=== PATIENT | male | born 1970 | race Caucasian/White ===

== ENCOUNTER 2019-04-25 13:04 | Emergency (ER) | payer OTHER ==
[2019-04-25 13:38] LABS: BASOPHILS % (AUTO) 0.2 %; HGB - HEMOGLOBIN 15.7 g/dL (14.0-18.0); LYMPHOCYTES # (AUTO) 1.8 10^3/uL (1.5-3.5); LYMPHOCYTES % (AUTO) 17.9 %; MEAN CORPUSCULAR HEMOGLOBIN 30.7 pg (27.0-31.0); MEAN CORPUSCULAR HGB CONC 35.2 g/dL (32.0-36.0); MEAN CORPUSCULAR VOLUME 87.1 fL (80.0-94.0); MEAN PLATELET VOLUME 9.7 fL (7.4-11.4); MONOCYTES # (AUTO) 0.9 10^3/uL (0.0-1.0); MONOCYTES % (AUTO) 8.8 %; NEUTROPHILS # (AUTO) 7.1 10^3/uL (1.5-6.6); NEUTROPHILS % (AUTO) 72.5 %; PLT - PLATELET COUNT 242 10^3/uL (130-450); RED BLOOD COUNT 5.12 10^6/uL (4.70-6.10); RED CELL DISTRIBUTION WIDTH 12.4 % (12.0-15.0); WHITE BLOOD COUNT 9.8 x10^3/uL (4.8-10.8)
--- NOTE | 2019-04-25 13:48 | ED Physician Documentation ---
PD HPI ABD PAIN - Stated complaint Stated Complaint: ABD PX - Chief complaint Chief Complaint: Abd Pain - History obtained from History obtained from: Patient - History of Present Illness Timing - onset: Other (48-year-old gentleman with intermittent upper abdominal pain that is nonradiating for about 2 months. It is worse after eating, does not seem to matter what he eats. There is no associated nausea, vomiting, changes in bowel movements. He denies weight loss or fevers. He was a heavy drinker up until about a week ago and then quit. He denies NSAID use.) Review of Systems Ten Systems: 10 systems reviewed and negative Constitutional: denies: Fever, Chills Throat: denies: Dental pain / toothache Cardiac: denies: Chest pain / pressure, Palpitations Respiratory: denies: Dyspnea, Cough PD PAST MEDICAL HISTORY - Present Medications Home Medications: Ambulatory Orders Medication Instructions Recorded Confirmed Omeprazole 20 mg PO DAILY #30 capsule. 04/25/19 - Allergies Allergies/Adverse Reactions: Allergies Allergy/AdvReac Type Severity Reaction Status Date / Time No Known Drug Allergies Allergy Verified 04/25/19 13:21 PD ED PE NORMAL - Vitals Vital signs reviewed: Yes - General General: Alert and oriented X 3, No acute distress, Other (He is quite anxious and shares that he is quite worried about cancer as he has a strong family history of same.) - Cardiac Cardiac: RRR, No murmur - Respiratory Respiratory: No respiratory distress, Clear bilaterally - Abdomen Abdomen: Normal bowel sounds, Soft, Non tender - Back Back: No CVA TTP, No spinal TTP - Derm Derm: Normal color, Warm and dry - Extremities Extremities: No edema, No calf tenderness / cord - Neuro Neuro: Alert and oriented X 3, Normal speech Results - Vitals Vitals: Vital Signs - 24 hr 04/25/19 04/25/19 13:18 14:24 Temperature 37.2 C Heart Rate 104 H 86 Respiratory 18 17 Rate Blood Pressure 142/108 H 136/86 H O2 Saturation 98 96 Oxygen O2 Source Room air - Labs Labs: Laboratory Tests 04/25/19 04/25/19 04/25/19 13:33 13:33 13:48 WBC 9.8 RBC 5.12 Hgb 15.7 Hct 44.6 MCV 87.1 MCH 30.7 MCHC 35.2 RDW 12.4 Plt Count 242 MPV 9.7 Neut # (Auto) 7.1 H Lymph # (Auto) 1.8 [place] # (Auto) 0.9 Eos # (Auto) 0.0 Baso # (Auto) 0.0 Absolute Nucleated RBC 0.00 Nucleated RBC % 0.0 Sodium 136 Potassium 3.9 Chloride 100 L Carbon Dioxide 23 Anion Gap 13.0 BUN 19 Creatinine 1.2 Estimated GFR (MDRD) 65 L Glucose 115 H Calcium 9.3 Total Bilirubin 0.8 AST 24 ALT 35 Alkaline Phosphatase 76 Total Protein 7.8 Albumin 4.9 Globulin 2.9 Albumin/Globulin Ratio 1.7 Lipase 26 Urine Color YELLOW Urine Clarity CLEAR Urine pH 6.0 Ur Specific [place] <=1.005 Urine Protein NEGATIVE Urine Glucose (UA) NEGATIVE Urine Ketones NEGATIVE Urine Occult Blood NEGATIVE Urine Nitrite NEGATIVE Urine Bilirubin NEGATIVE Urine Urobilinogen 0.2 (NORMAL) Ur Leukocyte Esterase NEGATIVE Ur Microscopic Review NOT INDICATED Urine Culture Comments NOT INDICATED - Rads (name of study) CT A/P Radiology: EMP read contemporaneously (?bone intraluminal LLQ, does not fit presentation) PD MEDICAL DECISION MAKING - ED course ED course: 48-year-old gentleman presents with ongoing episodic epigastric pain for 2 months and a pattern most consistent with gastritis. He was very anxious about the possibility of cancer given the family history of that and as such a CT scan was done to evaluate for serious pathology and was negative except for a possible fishbone or chicken bone in the left lower quadrant which would not fit the pattern of his symptoms and should pass without issue. Return for new or severe pain was advised as well as follow-up for endoscopy. Departure - Departure Disposition: 01 Home, Self Care Clinical Impression: Abdominal pain, Gastritis Condition: Good Record reviewed to determine appropriate education?: Yes Health Concerns: abd pain, pt concerned about cancer, but no evidence of that Plan of Treatment: PPI, followup for endoscopies Care Goals: resolution Assessment: as above Instructions: ED Gastritis Follow-Up: Kilo Villarreal MD [Provider Admit Priv/Credential] - Within 1 week Prescriptions: Omeprazole 20 mg PO DAILY #30 capsule. Comments: The pattern of your pain is most consistent with gastritis. The new medication should help but not immediately, he have to take it for 2 to 3 days before you get relief. Return for new worsening symptoms. As discussed it looks like you ate a small chicken bone or something along those lines that is within the bowel, it should not hurt you but if you develop new or different pain please return immediately for reevaluation. Follow-up with the surgeon for evaluation for upper and lower endoscopies.
[2019-04-25 13:51] LABS: ALBUMIN 4.9 g/dL (3.2-5.5); ALBUMIN/GLOBULIN RATIO 1.7 (1.0-2.2); BILIRUBIN,TOTAL 0.8 mg/dL (0.2-1.0); CALCIUM 9.3 mg/dL (8.5-10.3); CREATININE 1.2 mg/dL (0.6-1.2); TOTAL PROTEIN 7.8 g/dL (6.7-8.2)
[2019-04-25] MEDS ORDERED: IOVERSOL 320 100 ML VIAL IVP ONE ×2 (14:03→15:41)
[2019-04-25 14:04] LABS: BILIRUBIN,URINE NEGATIVE (NEGATIVE); GLUCOSE, URINE (UA) NEGATIVE (NEGATIVE); KETONES,URINE (UA) NEGATIVE (NEGATIVE); LEUKOCYTE ESTERASE, URINE NEGATIVE (NEGATIVE); NITRITE,URINE NEGATIVE (NEGATIVE); OCCULT BLOOD,URINE NEGATIVE (NEGATIVE); PROTEIN,URINE NEGATIVE (NEGATIVE); UROBILINOGEN,URINE 0.2 (NORMAL) E.U./dL (NORMAL)
[2019-04-25 14:07] LABS: CLARITY,URINE CLEAR (CLEAR)
--- NOTE | 2019-04-25 15:54 | CT Report ---
Reason: IV only, upper abd pain Procedure Date: 04/25/2019 Accession Number: [id number] / [id number] Procedure: CT - Abdomen/Pelvis W CPT Code: FULL RESULT: EXAM: CT ABDOMEN AND PELVIS EXAM DATE: 04/25/2019 02:54 PM. CLINICAL HISTORY: IV only, upper abdominal pain. COMPARISONS: None. TECHNIQUE: Routine helical CT imaging was performed through the abdomen and pelvis. IV contrast: OPTI 320 100ML. Enteric contrast: No. Reconstructions: Coronal and sagittal. In accordance with CT protocol optimization, one or more of the following dose reduction techniques were utilized for this exam: automated exposure control, adjustment of mA and/or KV based on patient size, or use of iterative reconstructive technique. FINDINGS: Lung Bases: Unremarkable. Liver: Normal. No masses. Gallbladder/Bile Ducts: Unremarkable. Spleen: Normal. Pancreas: Normal. Adrenal Glands: Normal. Kidneys: Normal. No masses or hydronephrosis. Peritoneal Cavity/Bowel: There is no bowel obstruction, free fluid or free air. No lymphadenopathy. A 3.1 cm high density thin linear object in the left lower quadrant demonstrates the appearance expected of a fish bone or chicken bone. There is no evidence of perforation or abscess formation in the area. Diverticulosis noted without diverticulitis detected. The appendix is well visualized and normal. Pelvic Organs: Normal. The bladder and visualized pelvic organs are within normal limits. Vasculature: No aneurysms or other significant abnormality. Bones: No significant abnormality. Other: None. IMPRESSION: Question fishbone or chicken bone in left lower quadrant, appearance suggests intraluminal position within a hollow viscus without evidence of macroperforation or abscess formation. It is unclear whether this is related to the patient's presentation. RADIA
[2019-04-25 16:14] VITALS: BP 144/89
== END 2019-04-25 16:14 | disposition home or self-care (01) ==
LOC: ED 13:04
DX: K29.70 Gastritis, unspecified, without bleeding (principal)
CPT/HCPCS: 74177; 80053; 81003; 83690; 85025; 99283; 99284; Q9967; 81001; 87086

== ENCOUNTER 2024-04-24 12:37 | Emergency (ER) | payer OTHER ==
[2024-04-24 13:06] VITALS: BP 145/93; O2SAT 99
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
--- NOTE | 2024-04-24 14:18 | XRAY Report ---
PROCEDURE: Ankle 3+V LT INDICATIONS: Trauma TECHNIQUE: 3 views of the ankle were acquired. COMPARISON: None. FINDINGS: Bones: Mildly displaced comminuted distal fibular fracture. There is no dislocation at the tibiotala r joint space. Syndesmosis does not appear to demonstrate widening. Soft tissues: Lateral malleolar edema.. Achilles tendon appears normal. IMPRESSION: Comminuted distal fibular fracture with adjacent edema. No dislocation at tibiotalar joint space. Reviewed by: Ofe Henson MD on 04/24/2024 2:17 PM PDT Approved by: Ofe Henson MD on 04/24/2024 2:17 PM PDT Station ID: [id number]
[2024-04-24] MEDS: ACETAMINOPHEN 500 MG TABLET PO STA (14:25)
[2024-04-24] MEDS: IBUPROFEN 800 MG TABLET PO STA (14:25)
[2024-04-24] MEDS: HYDROcod/ACETAM 5/325 MG TABLET PO STA (14:40)
== END 2024-04-24 15:14 | disposition home or self-care (01) ==
LOC: ED 12:37
DX: S82.832A Other fracture of upper and lower end of left fibula, initial encounter for closed fracture (principal); S61.213A Laceration without foreign body of left middle finger without damage to nail, initial encounter; V29.99XA Rider (driver) (passenger) of other motorcycle injured in unspecified traffic accident, initial encounter; Y92.410 Unspecified street and highway as the place of occurrence of the external cause; Z79.899 Other long term (current) drug therapy
CPT/HCPCS: 99283; 99284

== ENCOUNTER 2024-04-30 17:06 | Outpatient (CLI) | payer OTHER ==
--- NOTE | 2024-04-30 23:31 | XRAY Report ---
PROCEDURE: Finger(s) LT INDICATIONS: DIRUPTION OF TRUMATIC INJURY WOUND REPAIR TECHNIQUE: AP hand, 2 views of the third finger(s) acquired. COMPARISON: None. FINDINGS: Bones: No fractures or dislocations. No suspicious bony lesions. Soft tissues: No suspicious soft tissue calcifications or masses. IMPRESSION: No gross acute third finger fracture or dislocation. No radiopaque foreign body is seen. Reviewed by: Cristian Spangler MD on 04/30/2024 11:29 PM PDT Approved by: Cristian Spangler MD on 04/30/2024 11:29 PM PDT Station ID: [id number]
== END 2024-04-30 17:07 | disposition home or self-care (01) ==
LOC: DI 17:06
PROVIDERS: ATTEND Physician Assistant
DX: T81.33XD Disruption of traumatic injury wound repair, subsequent encounter (principal)

== ENCOUNTER 2024-05-02 09:23 | Outpatient (CLI) | payer OTHER ==
--- NOTE | 2024-05-02 20:35 | XRAY Report ---
PROCEDURE: Ankle 3+V LT INDICATIONS: FX UPPER AND LOWER END IF LEFT FIBULA TECHNIQUE: 3 views of the ankle were acquired. COMPARISON: Left ankle radiographs 04/24/2024. FINDINGS: Bones: Splint material obscures fine bony detail. Oblique fracture of the distal fibula again seen. There is minimal widening of the medial tibiotalar clear space that appears new compared to the prior radiographs. Soft tissues: Soft tissue edema seen surrounding the ankle. IMPRESSION: Mildly displaced oblique fracture of the distal fibula. Minimal widening of the medial tibiotalar nilo ar space is new when compared to the exam from 04/24/2024 suggesting slight lateral tibiotalar subluxat ion. Reviewed by: Wilberto Minor MD on 05/02/2024 8:34 PM PDT Approved by: Wilberto Minor MD on 05/02/2024 8:34 PM PDT Station ID: [id number]
== END 2024-05-02 09:24 | disposition home or self-care (01) ==
LOC: DI 09:23
PROVIDERS: ATTEND Orthopaedic Surgery
DX: S82.832A Other fracture of upper and lower end of left fibula, initial encounter for closed fracture (principal)

== ENCOUNTER 2024-06-01 13:21 | Outpatient (CLI) | payer OTHER ==
--- NOTE | 2024-06-02 16:30 | XRAY Report ---
PROCEDURE: Ankle 3+V LT INDICATIONS: FX OF UPPER LOWER ENDOF LEFT FIBULA TECHNIQUE: 3 views of the ankle were acquired. COMPARISON: X-ray ankle 04/24/2024, 05/02/2024. FINDINGS: Bones: Since the prior study, the gauze has been removed. The ankle mortise still appears widened. F racture lucencies of the distal fibula still persists with minimal interval callus formation. Soft tissues: Continued soft tissue swelling about the ankle IMPRESSION: Distal fibular fracture, with persistent abnormal widening of the ankle mortise Reviewed by: Nish Jamison MD on 06/02/2024 4:18 PM PDT Approved by: Nish Jamison MD on 06/02/2024 4:18 PM PDT Station ID: [id number]
== END 2024-06-01 13:22 | disposition home or self-care (01) ==
LOC: DI 13:21
PROVIDERS: ATTEND Orthopaedic Surgery
DX: S82.832D Other fracture of upper and lower end of left fibula, subsequent encounter for closed fracture with routine healing (principal)